=== PATIENT | male | born 1965 | race Caucasian/White ===

== ENCOUNTER 2016-12-28 22:51 | Emergency (ER) | payer OTHER ==
[~2016-12-28] VITALS: Ht 177.8 cm; Wt 103.0 kg
[~2016-12-28 22:51] MED LIST: ALBU8.5H3; [UNRECOGNIZED DRUG - REMARK]
[2016-12-28 23:05] VITALS: Ht 177.8 cm; Wt 103.0 kg
[2016-12-29] MEDS ORDERED: IPRATROPIUM (NEB) 0.5 MG/2.5 ML AMP NEB STA (03:07)
[2016-12-29] MEDS ORDERED: ALBUTEROL 0.5% (NEB) 2.5 MG/0.5 ML AMP INH STA (03:07)
[2016-12-29] MEDS ORDERED: METHYLPREDNISOLONE 125 MG INJ IM STA (03:07)
--- NOTE | 2016-12-29 03:33 | ERD ---
ER Documentation Chief Complaint Date/Time DATE: 12/29/16 TIME: 03:30 Chief Complaint cough/sob/asthma x 2 days HPI 51-year-old male presents to emergency department for complaints of cough and wheezing for 2 days. Patient has been having dry cough, patient does not cough up any phlegm or blood. Patient has episodes of wheezing, patient has history of asthma, ran out of his inhaler. Patient denies any chest pain or palpitations. Patient denies any dizziness. Patient denies any fever or chills. Patient dyspnea on exertion or dyspnea on lying down. ROS All systems reviewed and are negative except as per history of present illness. Medications Home Meds Reported Medications [Unknown For Htn] No Conflict Check 04/07/12 Albuterol Sulfate* (Proair HFA*) 8.5 Gm Hfa.aer.ad 04/07/12 Allergies Allergies: Coded Allergies: No Known Drug Allergies (Verified Allergy, Unknown, 12/28/16) Uncoded Allergies: NKDA (Allergy, Unknown, 12/28/16) PMhx/Soc History of Surgery: Yes (abd surgery) Anesthesia Reaction: No Hx Neurological Disorder: No Hx Respiratory Disorders: Yes (ASTHMA) Hx Cardiac Disorders: Yes (HTN) Hx Psychiatric Problems: No Hx Miscellaneous Medical Probl: No Hx Alcohol Use: No Hx Substance Use: No Hx Tobacco Use: Yes Smoking Status: Current every day smoker FmHx Family History: No coronary disease, No diabetes, No other Physical Exam Vitals Vital Signs Date Time Temp Pulse Resp B/P Pulse Ox O2 Delivery O2 Flow Rate FiO2 12/29/16 04:49 85 95 Room Air 12/29/16 03:27 81 20 95 21 12/28/16 23:05 97.8 85 20 133/95 96 Physical Exam GENERAL: The patient is well developed and appropriate for usual state of health, in no apparent distress. CHEST: Clear to auscultation bilaterally. There are no rales, wheezes or rhonchi. HEART: Regular rate and rhythm. No murmurs, clicks, rubs or gallops. No S3 or S4. ABDOMEN: Soft, nontender and nondistended. Good bowel sounds. No rebound or guarding. No gross peritonitis. No gross organomegaly or masses. No Nolasco sign or McBurney point tenderness. BACK: No midline or flank tenderness. EXTREMITIES: Equal pulses bilaterally. There is no peripheral clubbing, cyanosis or edema. No focal swelling or erythema. Full range of motion. Grossly neurovascularly intact. NEURO: Alert and oriented. Cranial nerves 2-12 intact. Motor strength in all 4 extremities with 5/5 strength. Sensation grossly intact. Normal speech and gait. SKIN: There is no apparent rash or petechia. The skin is warm and dry. HEMATOLOGIC AND LYMPHATIC: There is no evidence of excessive bruising or lymphedema. No gross cervical, axillary, or inguinal lymphadenopathy. Results 24 hrs Current Medications Medications (Trade) Dose Ordered Sig/Amrita Route PRN Reason Start Time Stop Time Status Last Admin Dose Admin Ipratropium [place] (Atrovent 0.02% (Neb)) 0.5 mg ONCE STAT NEB 12/29/16 03:07 12/29/16 03:09 DC 12/29/16 03:20 Albuterol (Proventil 0.5% (Neb)) 10 mg ONCE STAT INH 12/29/16 03:07 12/29/16 03:09 DC 12/29/16 03:21 Methylprednisolone Sodium Succinate (Solu-Medrol) 125 mg ONCE STAT IM 12/29/16 03:07 12/29/16 03:09 DC 12/29/16 03:16 Breathing treatment of albuterol and Atrovent and Solu-Medrol IM was given here in emergency department, after treatment, patient's lungs sounds are clear and patient's oxygenation is better. Patient verbalized feeling much better. PROCEDURE: Chest. CLINICAL INDICATION: Asthma exacerbation. TECHNIQUE: Single frontal view of the chest was obtained. COMPARISON: None. FINDINGS: The cardiac silhouette is magnified. The aortic arch is unremarkable. There is no focal consolidation, vascular congestion or pleural effusion. There is no pneumothorax. IMPRESSION: No evidence for active cardiopulmonary disease. .Joel Kahn MD, Date Time Electronically viewed and signed by .Joel Kahn MD, on 12/29/2016 04:32 .T/ CC: RAFAELA MARRUFO [employer] Procedures/MDM Medical Decision Making: Patient symptoms are most likely consistent with acute bronchitis with acute asthma exacerbation, which viral in origin. There is low suspicion for Pneumonia at this time since patients lungs sounds are clear, patient O2 saturation is normal and patient doesnt show any respiratory distress. Patients chest xray doesnt show infiltrates or any other cardiopulmonary emergencies at this time. There is low suspicion for other cardiopulmonary emergencies at this time such as CHF, Pulmonary Embolism, Pneumothorax or any other cardiopulmonary emergencies at this time. There is low suspicion for sepsis. Patient appears well and is hemodynamically stable. She does not have any fever. Disposition: Home. Condition: Stable Prescriptions: Guaifenesin DM Zyrtec ibuprofen albuterol prednisone Instructions: Patient is advised to take medications as prescribed. Patient is advised to rest. Patient advised to increase fluid intake, do humidifier at home and if possible, do salt water gargles. Patient is advised that if symptoms are worse, shortness of breath, uncontrolled fever, stridor, vomiting, worst signs and symptoms to return to emergency department immediately. Otherwise, patient is advised to follow up with primary doctor in 5-7 days. Departure Diagnosis: Primary Impression: Acute bronchitis Bronchitis organism: unspecified organism Qualified Code: J20.9 - Acute bronchitis, unspecified organism Additional Impression: Acute asthma exacerbation Asthma severity: unspecified severity Qualified Code: J45.901 - Asthma with acute exacerbation, unspecified asthma severity Condition: Stable Patient Instructions: Bronchitis With Wheezing (Adult) Additional Instructions: Patient is advised to take medications as prescribed. Patient is advised to rest. Patient advised to increase fluid intake, do humidifier at home and if possible, do salt water gargles. Patient is advised that if symptoms are worse, shortness of breath, uncontrolled fever, stridor, vomiting, worst signs and symptoms to return to emergency department immediately. Otherwise, patient is advised to follow up with primary doctor in 5-7 days. RAFAELA MARRUFO NP Dec 29, 2016 03:32
--- NOTE | 2016-12-29 04:32 | RADRPT ---
PROCEDURE: Chest. CLINICAL INDICATION: Asthma exacerbation. TECHNIQUE: Single frontal view of the chest was obtained. COMPARISON: None. FINDINGS: The cardiac silhouette is magnified. The aortic arch is unremarkable. There is no focal consolidat ion, vascular congestion or pleural effusion. There is no pneumothorax. IMPRESSION: No evidence for active cardiopulmonary disease. .Joel Kahn MD, MD Date Time Electronically viewed and signed by .Joel Kahn MD, on 12/29/2016 04:32 .T/
[2016-12-29 04:49] VITALS: PULSE 85
[2016-12-29] MEDS ORDERED: CETI10CA PO (05:16)
[2016-12-29] MEDS ORDERED: GUAI120S26 PO (05:16)
[2016-12-29] MEDS ORDERED: PRED50TA PO (05:16)
[2016-12-29] MEDS ORDERED: ALBU8.5H3 INH (05:16)
== END 2016-12-29 05:29 | disposition home or self-care (01) ==
LOC: FTE 22:51
DX: J20.9 Acute bronchitis, unspecified (principal); J45.901 Unspecified asthma with (acute) exacerbation; F17.210 Nicotine dependence, cigarettes, uncomplicated; I10 Essential (primary) hypertension
CPT/HCPCS: 71010; 94644; 96372; J2930; Z7502; Z7610

== ENCOUNTER 2017-01-30 21:57 | Emergency (ER) | payer OTHER ==
[~2017-01-30] VITALS: Ht 177.8 cm; Wt 98.5 kg
[~2017-01-30 21:57] MED LIST changes: +ALBU8.5H3 INH; +CETI10CA PO; +GUAI120S26 PO; +PRED50TA PO
[2017-01-30 22:16] VITALS: Ht 177.8 cm; Wt 98.5 kg
[2017-01-30] MEDS ORDERED: IPRATROPIUM (NEB) 0.5 MG/2.5 ML AMP NEB STA (22:52)
[2017-01-30] MEDS ORDERED: predniSONE 20 MG TAB PO STA (22:52)
[2017-01-30] MEDS ORDERED: ALBUTEROL 0.083% (NEB) 2.5 MG/3 ML AMP NEB STA (22:52)
[2017-01-30] MEDS ORDERED: ALBU8.5H3 INH (23:19)
[2017-01-30] MEDS ORDERED: IBUP-1542 PO (23:21)
[2017-01-30] MEDS ORDERED: AZIT250T94 PO (23:22)
--- NOTE | 2017-01-30 23:25 | ERD ---
ER Documentation Chief Complaint Date/Time DATE: 01/30/17 TIME: 23:22 Chief Complaint cough/congestion x 3 days HPI Patient is a 51-year-old male with past medical history of hypertension, asthma presents to the emergency department with a cough and congestion 3 days. Patient states that he was hospitalized 1 month ago for pneumonia. He states that he was given IV antibiotics however he was told to greens picker a prescription for oral p.o. antibiotics which he did not fill. Patient states he has been coughing yellow-green phlegm for last 3 days. Patient states that his cough is worse at night. Patient reports intermittent episodes of wheezing. Patient states he currently does not have an albuterol inhaler. Patient denies any fevers but does report chills. Patient denies any nausea, vomiting, abdominal pain, chest pain, shortness of breath, arm pain, loss consciousness. ROS All systems reviewed and are negative except as per history of present illness. Medications Home Meds Active Scripts Prednisone* (Prednisone*) 20 Mg Tab, 40 MG PO DAILY for 4 Days, TAB Prov:DEMOND LU PA-C 01/31/17 Azithromycin* (Zithromax*) 250 Mg Tablet, 250 MG PO .ZPACK DIRECTED, #6 TAB TAKE 500 MG (2 TABS) THE FIRST DAY THEN 250 MG (1 TAB) DAYS 2-5 Prov:DEMOND LU PA-C 01/30/17 Ibuprofen* (Motrin*) 600 Mg Tab, 600 MG PO Q6, #30 TAB Prov:DEMOND LU PA-C 01/30/17 Albuterol Sulfate* (Proair HFA*) 8.5 Gm Hfa.aer.ad, 2 PUFF INH Q4, #1 INHALER Prov:DEMOND LU PA-C 01/30/17 Prednisone* (Prednisone*) 50 Mg Tablet, 50 MG PO DAILY for 5 Days, TAB Prov:RAFAELA MARRUFO NP 12/29/16 Cetirizine Hcl* (Zyrtec*) 10 Mg Capsule, 10 MG PO DAILY, #30 TAB.CHEW Prov:RAFAELA MARRUFO NP 12/29/16 Capseojvkrs-U-Uthgufhkzq Hb* (Guaifenesin* DM Syrup) 120 Ml Syrup, 10 ML PO Q4H Y for COUGH, #120 ML Prov:RAFAELA MARRUFO THERAPEUTIC RECREATION DIRECTOR 12/29/16 Albuterol Sulfate* (Proair HFA*) 8.5 Gm Hfa.aer.ad, 2 PUFF INH Q4H Y for WHEEZING AND SOB, #1 INHALER Prov:NIRUELIEA STEPHANIE Carey THERAPEUTIC RECREATION DIRECTOR 12/29/16 Reported Medications [Unknown For Htn] No Conflict Check 04/07/12 Albuterol Sulfate* (Proair HFA*) 8.5 Gm Hfa.aer.ad 04/07/12 Allergies Allergies: Coded Allergies: No Known Drug Allergies (Verified Allergy, Unknown, 01/30/17) Uncoded Allergies: NKDA (Allergy, Unknown, 12/28/16) PMhx/Soc History of Surgery: Yes (abd surgery) Anesthesia Reaction: No Hx Neurological Disorder: No Hx Respiratory Disorders: Yes (ASTHMA) Hx Cardiac Disorders: Yes (HTN) Hx Psychiatric Problems: No Hx Miscellaneous Medical Probl: No Hx Alcohol Use: No Hx Substance Use: No Hx Tobacco Use: Yes Smoking Status: Former smoker FmHx Family History: No diabetes Physical Exam Vitals Vital Signs Date Time Temp Pulse Resp B/P Pulse Ox O2 Delivery O2 Flow Rate FiO2 01/31/17 01:05 98.3 106 17 160/90 99 Room Air 01/30/17 23:14 84 18 94 21 01/30/17 22:16 98.5 88 20 158/91 97 Physical Exam GENERAL: Well-developed, well-nourished male. Appears in no acute distress. Speaking in full sentences. no abdominal retractions or nasal flaring no tripoding. HEAD: Normocephalic, atraumatic. No deformities or ecchymosis. EYE: Pupils equal, round, and reactive to light. EOMs intact. No conjunctival erythema. No eye discharge. ENT: External ear without any masses or tenderness. Auditory canals clear bilaterally. TM visualized bilaterally, non-erythematous, non-bulging. Nasal mucosa pink with no discharge. Oropharynx is pink without any tonsillar erythema or exudates. No uvula deviation. No kissing tonsils. NECK: Supple. No meningismus. Normal ROM of the neck. LUNG: Slight wheezing auscultated in the left lower lobe. HEART: Regular rate and rhythm. No murmurs, rubs or gallops. BACK: No midline tenderness. EXTREMITES: Equal pulses bilaterally. No peripheral clubbing, cyanosis or edema. No unilateral leg swelling. NEUROLOGIC: Alert and oriented to person, place and time. Moving all four extremities. 5/5 strength in all extremities. Normal speech. Steady gait SKIN: Normal color. Warm and dry. No rashes or lesions. Results 24 hrs Current Medications Medications (Trade) Dose Ordered Sig/Amrita Route PRN Reason Start Time Stop Time Status Last Admin Dose Admin Albuterol (Proventil 0.083% (Neb)) 5 mg ONCE STAT NEB 01/30/17 22:52 01/30/17 22:54 DC 01/30/17 23:08 Ipratropium [place] (Atrovent 0.02% (Neb)) 0.5 mg ONCE STAT NEB 01/30/17 22:52 01/30/17 22:54 DC 01/30/17 23:08 Prednisone (Prednisone) 40 mg ONCE STAT PO 01/30/17 22:52 01/30/17 22:54 DC 01/30/17 23:30 Procedures/MDM ED COURSE: The patient was stable throughout ED course. I kept the patient and/or family informed of laboratory and diagnostic imaging results throughout the ED course. DIAGNOSTIC IMAGING: Read by radiologist. DIAGNOSTIC IMAGING REPORT Patient: HUSAM PEDERSON : 1965 Age: 51 Sex: M MR #: [id number] DOS: 01/30/17 2252 Ordering MD: DEMOND LU PA-C Location: [facility] Room/Bed: PROCEDURE: Chest. CLINICAL INDICATION: Chest pain. TECHNIQUE: Single frontal view of the chest was obtained. COMPARISON: 12/29/2016. FINDINGS: The cardiac silhouette is magnified. The aortic arch is unremarkable. There is no focal consolidation, vascular congestion or pleural effusion. There is no pneumothorax. IMPRESSION: No evidence for active cardiopulmonary disease. .Joel Kahn MD, Date Time Electronically viewed and signed by .Joel Kahn MD, on 01/31/2017 00:23 .T/ CC: DEMOND LU PA-C PROCEDURES: None. MEDICATIONS GIVEN: Albuterol, ipratropium, prednisone Patient tolerated medication well with no adverse reactions. Patient reported improvement in pain. MEDICAL DECISION MAKING: This is a 51-year-old male with past medical history of asthma, hypertension who presents emergency department with a cough and nasal congestion 3 days vital signs were reviewed. Patient was afebrile. Patient was not hypoxic. ENT exam was normal. Lung exam revealed slight wheezing. Patient was given a breathing treatment here in the emergency department. Upon reexamination, patient was noted to have improved breath sounds. Patient was resting comfortably with no signs of respiratory distress or respiratory failure. Chest x-ray was obtained. Chest x-ray was unremarkable.. Given these findings , the patient's presentation is most consistent with viral URI vs acute bronchitis. I have a much lower clinical concern for bacterial infections including pneumonia, meningitis, sinusitis, otitis externa, acute otitis media, strep pharyngitis, epiglottitis or peritonsillar abscess. Given patient's history of recent pneumonia, I will empirically treat the patient with course of antibiotics at this time. PRESCRIPTIONS: Albuterol, ibuprofen, Zithromax, Prednisone DISCHARGE: At this time, patient is stable for discharge and outpatient management. Supportive therapies such as OTC throat lozenges, salt water gurgles, popsicles and jello discussed. I have instructed the patient to follow-up with his/her primary care physician in 1-2 days. I have instructed the patient to promptly return to the ER for any new or worsening symptoms including increased pain, swelling, fever, nausea, vomiting, weakness or difficulty breathing. The patient and/or family expressed understanding of and agreement with this plan. All questions were answered. Home care instructions were provided. Departure Diagnosis: Primary Impression: Bronchitis Condition: Stable Patient Instructions: Bronchitis With Wheezing (Adult) Referrals: COMMUNITY CLINICS YOU HAVE RECEIVED A MEDICAL SCREENING EXAM AND THE RESULTS INDICATE THAT YOU DO NOT HAVE A CONDITION THAT REQUIRES URGENT TREATMENT IN THE EMERGENCY DEPARTMENT. FURTHER EVALUATION AND TREATMENT OF YOUR CONDITION CAN WAIT UNTIL YOU ARE SEEN IN YOUR DOCTORS OFFICE WITHIN THE NEXT 1-2 DAYS. IT IS YOUR RESPONSIBILITY TO MAKE AN APPOINTMENT FOR FOLOW-UP CARE. IF YOU HAVE A PRIMARY DOCTOR --you should call your primary doctor and schedule an appointment IF YOU DO NOT HAVE A PRIMARY DOCTOR YOU CAN CALL OUR PHYSICIAN REFERRAL HOTLINE AT IF YOU CAN NOT AFFORD TO SEE A PHYSICIAN YOU CAN CHOSE FROM THE FOLLOWING [facility] [address] [facility] [address] [facility] [address] [facility] [address] [facility] [address] [facility]. [facility] [address] [facility]. [facility] YOU HAVE RECEIVED A MEDICAL SCREENING EXAM AND THE RESULTS INDICATE THAT YOU DO NOT HAVE A CONDITION THAT REQUIRES URGENT TREATMENT IN THE EMERGENCY DEPARTMENT. FURTHER EVALUATION AND TREATMENT OF YOUR CONDITION CAN WAIT UNTIL YOU ARE SEEN IN YOUR DOCTORS OFFICE WITHIN THE NEXT 1-2 DAYS. IT IS YOUR RESPONSIBILITY TO MAKE AN APPOINTMENT FOR FOLOW-UP CARE. IF YOU HAVE A PRIMARY DOCTOR --you should call your primary doctor and schedule and appointment IF YOU DO NOT HAVE A PRIMARY DOCTOR YOU CAN CALL OUR PHYSICIAN REFERRAL HOTLINE AT . IF YOU CAN NOT AFFORD TO SEE A PHYSICIAN YOU CAN CHOSE FROM THE FOLLOWING [facility]: [facility] [address] [place] [address] [facility] [address] [place] [address] [facility] [address] [place] [address] Additional Instructions: Call your primary care doctor TOMORROW for an appointment during the next 1-2 days.See the doctor sooner or return here if your condition worsens before your appointment time. DEMOND LU PA-C Jan 30, 2017 23:25
--- NOTE | 2017-01-31 00:24 | RADRPT ---
PROCEDURE: Chest. CLINICAL INDICATION: Chest pain. TECHNIQUE: Single frontal view of the chest was obtained. COMPARISON: 12/29/2016. FINDINGS: The cardiac silhouette is magnified. The aortic arch is unremarkable. There is no focal consolidat ion, vascular congestion or pleural effusion. There is no pneumothorax. IMPRESSION: No evidence for active cardiopulmonary disease. .Joel Kahn MD, Date Time Electronically viewed and signed by .Joel Kahn MD, on 01/31/2017 00:23 .T/
[2017-01-31] MEDS ORDERED: PRED20TA PO (00:53)
[2017-01-31 01:05] VITALS: BP 160/90; PULSE 106; RESP 17; TEMP 98.3
== END 2017-01-31 01:05 | disposition home or self-care (01) ==
LOC: FTE 21:57
DX: J20.9 Acute bronchitis, unspecified (principal); I10 Essential (primary) hypertension; J45.909 Unspecified asthma, uncomplicated; Z87.891 Personal history of nicotine dependence
CPT/HCPCS: 71010; 94664; J7512; Z7502; Z7610